=== PATIENT | female | born 1970 | race Caucasian/White ===

== ENCOUNTER 2017-12-09 14:16 | Emergency (ER) | payer MEDICARE | END 2017-12-09 18:37 | disposition home or self-care (01) | LOC: D.ER 14:16 | DX: J06.9 Acute upper respiratory infection, unspecified (principal); J02.9 Acute pharyngitis, unspecified; F17.200 Nicotine dependence, unspecified, uncomplicated ==

== ENCOUNTER 2017-12-29 23:00 | Emergency (ER) | payer MEDICARE ==
[2017-12-29 23:33] LABS: APPEARANCE HAZY (CLEAR); COLOR YELLOW (YELLOW)
[2017-12-29 23:34] LABS: BILIRUBIN NEGATIVE (NEGATIVE); GLUCOSE NEGATIVE (NEGATIVE); KETONE NEGATIVE (NEGATIVE); NITRITE NEGATIVE (NEGATIVE); PROTEIN NEGATIVE (NEGATIVE); UROBILINOGEN NORMAL (NORMAL)
[2017-12-29 23:35] LABS: BACTERIA FEW /hpf (NONE SEEN); EPITHELIAL CELLS 0-5 /hpf (0-5); RED CELLS - URINE 0-5 /hpf (0-5); UDS - AMPHET NEGATIVE QUAL (NEGATIVE); UDS - BARB NEGATIVE QUAL (NEGATIVE); UDS - BENZO POSITIVE QUAL (NEGATIVE); UDS - COCAINE NEGATIVE QUAL (NEGATIVE); UDS - OPIATE NEGATIVE QUAL (NEGATIVE); UDS - PCP NEGATIVE QUAL (NEGATIVE); UDS - THC POSITIVE QUAL (NEGATIVE); WHITE CELLS - URINE 0-5 /hpf (0-5)
[2017-12-29 23:47] LABS: HEMATOCRIT 40.4 % (36.0-48.0); HEMOGLOBIN 14.1 g/dL (12-16); LYMPHOCYTES 33.3 % (15-50); MCH 31.8 pg (26.0-34.0); MCHC 34.9 g/dL (31.0-37.0); MCV 91.2 fL (80.0-100.0); MEAN PLATELET VOLUME 8.4 fL (7.4-10.4); NEUTROPHILS 62.9 % (40-80); PLATELET COUNT 310 10x3/uL (130-400); RBC 4.43 10x6/uL (4.00-5.40); RDW 14.4 % (11.5-14.5)
[2017-12-30 00:02] LABS: ALBUMIN 2.8 g/dL (3.4-5.0); BILIRUBIN - TOTAL 0.2 mg/dL (0.2-1.3); CALCIUM 8.7 mg/dL (8.5-10.1); CARBON DIOXIDE 24.4 mmol/L (21.0-32.0); POTASSIUM - SERUM 3.4 mmol/L (3.5-5.1); PROTEIN - SERUM 7.7 g/dL (6.4-8.2)
[2017-12-30 00:23] LABS: HCG URINE NEGATIVE (NEGATIVE)
== END 2017-12-30 00:50 | disposition short-term general hospital (02) ==
LOC: D.ER 23:00
PROVIDERS: Emergency Medicine; Physician Assistant Medical
DX: R45.851 Suicidal ideations (principal); F31.60 Bipolar disorder, current episode mixed, unspecified; F17.200 Nicotine dependence, unspecified, uncomplicated

== ENCOUNTER 2018-06-16 16:14 | Emergency (ER) | payer MEDICARE ==
[~2018-06-16] VITALS: Ht 157.5 cm; Wt 108.2 kg
[2018-06-16 16:16] VITALS: Ht 157.5 cm; Wt 108.2 kg
[2018-06-16] MEDS ORDERED: NEURONTIN 300300 MG PO (16:18)
[2018-06-16] MEDS ORDERED: PEPCID AC20 MG PO (16:18)
[2018-06-16] MEDS ORDERED: ZOFRAN8 MG PO (16:19)
[2018-06-16] MEDS ORDERED: DOK100 MG PO (16:19)
[2018-06-16] MEDS ORDERED: SEROQUEL200 MG PO (16:19)
[2018-06-16] MEDS ORDERED: PROTONIX40 MG PO (16:20)
[2018-06-16] MEDS ORDERED: CHLORPROMAZINE200 MG PO (16:20)
[2018-06-16] MEDS ORDERED: MINIPRESS1 MG PO (16:21)
[2018-06-16] MEDS ORDERED: REQUIP0.25 MG PO (16:21)
[2018-06-16 16:48] LABS: BASOPHILS 0.2 % (0-2); EOSINOPHILS 1.3 % (0-7); HEMATOCRIT 45.1 % (36.0-48.0); HEMOGLOBIN 15.5 g/dL (12-16); IMMATURE GRANULOCYTES 0.3 % (0-5); LYMPHOCYTES 25.4 % (15-50); MCH 32.5 pg (26.0-34.0); MCHC 34.4 g/dL (31.0-37.0); MCV 94.5 fL (80.0-100.0); MEAN PLATELET VOLUME 9.9 fL (7.4-10.4); MONOCYTES 6.2 % (2-11); NEUTROPHILS 66.6 % (40-80); RBC 4.77 10x6/uL (4.00-5.40); WBC 13.3 10x3/uL (4.8-10.8)
[2018-06-16 17:00] LABS: APPEARANCE CLEAR (CLEAR); BILIRUBIN NEGATIVE (NEGATIVE); COLOR YELLOW (YELLOW); GLUCOSE NEGATIVE (NEGATIVE); KETONE NEGATIVE (NEGATIVE); NITRITE NEGATIVE (NEGATIVE); PROTEIN NEGATIVE (NEGATIVE); UROBILINOGEN NORMAL (NORMAL)
[2018-06-16 17:02] LABS: UDS - AMPHET NEGATIVE QUAL (NEGATIVE); UDS - BARB NEGATIVE QUAL (NEGATIVE); UDS - BENZO POSITIVE QUAL (NEGATIVE); UDS - COCAINE NEGATIVE QUAL (NEGATIVE); UDS - OPIATE NEGATIVE QUAL (NEGATIVE); UDS - PCP NEGATIVE QUAL (NEGATIVE); UDS - THC POSITIVE QUAL (NEGATIVE)
[2018-06-16 17:03] LABS: ALBUMIN 3.2 g/dL (3.4-5.0); ANION GAP 14.6 mmol/L (8-16); BILIRUBIN - TOTAL 0.34 mg/dL (0.2-1.3); CALCIUM 9.1 mg/dL (8.5-10.1); CARBON DIOXIDE 24.1 mmol/L (21.0-32.0); CREATININE - SERUM 0.9 mg/dL (0.6-1.3); MAGNESIUM - SERUM 1.8 mg/dL (1.8-2.4); POTASSIUM - SERUM 3.7 mmol/L (3.5-5.1); PROTEIN - SERUM 7.8 g/dL (6.4-8.2)
[2018-06-16 17:10] LABS: PLATELET COUNT 217 10x3/uL (130-400)
[2018-06-16 21:31] LABS: HCG URINE NEGATIVE (NEGATIVE)
[2018-06-16 23:08] VITALS: BP 173/90
== END 2018-06-16 23:09 ==
LOC: D.ER 16:14
PROVIDERS: Emergency Medicine
DX: R45.851 Suicidal ideations (principal); F41.9 Anxiety disorder, unspecified; F32.9 Major depressive disorder, single episode, unspecified; Z91.14 Patient's other noncompliance with medication regimen; F17.200 Nicotine dependence, unspecified, uncomplicated

== ENCOUNTER 2018-07-08 17:26 | Emergency (ER) | payer MEDICARE ==
[~2018-07-08] VITALS: Ht 157.5 cm; Wt 101.4 kg
[~2018-07-08 17:26] MED LIST: CHLORPROMAZINE200 MG PO; DOK100 MG PO; MINIPRESS1 MG PO; NEURONTIN 300300 MG PO; PEPCID AC20 MG PO; PROTONIX40 MG PO; REQUIP0.25 MG PO; SEROQUEL200 MG PO; ZOFRAN8 MG PO
[2018-07-08 17:32] VITALS: Ht 157.5 cm; Wt 101.4 kg
[2018-07-08 18:04] LABS: BASOPHILS 0.4 % (0-2); EOSINOPHILS 1.2 % (0-7); HEMATOCRIT 46.3 % (36.0-48.0); HEMOGLOBIN 16.4 g/dL (12-16); IMMATURE GRANULOCYTES 0.4 % (0-5); LYMPHOCYTES 30.8 % (15-50); MCH 32.7 pg (26.0-34.0); MCHC 35.4 g/dL (31.0-37.0); MCV 92.2 fL (80.0-100.0); MEAN PLATELET VOLUME 9.9 fL (7.4-10.4); MONOCYTES 6.8 % (2-11); NEUTROPHILS 60.4 % (40-80); RBC 5.02 10x6/uL (4.00-5.40); RDW 14.8 % (11.5-14.5); WBC 12.9 10x3/uL (4.8-10.8)
[2018-07-08 18:05] LABS: APPEARANCE SL CLDY (CLEAR); BILIRUBIN NEGATIVE (NEGATIVE); COLOR YELLOW (YELLOW); GLUCOSE NEGATIVE (NEGATIVE); HCG URINE NEGATIVE (NEGATIVE); KETONE NEGATIVE (NEGATIVE); NITRITE NEGATIVE (NEGATIVE); PROTEIN NEGATIVE (NEGATIVE); SPECIFIC GRAVITY 1.005 (1.005-1.020); UROBILINOGEN NORMAL (NORMAL)
[2018-07-08 18:06] LABS: PLATELET COUNT 266 10x3/uL (130-400)
[2018-07-08 18:10] LABS: UDS - AMPHET NEGATIVE QUAL (NEGATIVE); UDS - BARB NEGATIVE QUAL (NEGATIVE); UDS - BENZO NEGATIVE QUAL (NEGATIVE); UDS - COCAINE NEGATIVE QUAL (NEGATIVE); UDS - OPIATE NEGATIVE QUAL (NEGATIVE); UDS - PCP NEGATIVE QUAL (NEGATIVE); UDS - THC POSITIVE QUAL (NEGATIVE)
[2018-07-08 18:19] LABS: ALBUMIN 3.5 g/dL (3.4-5.0); ALKALINE PHOSPHATASE 112 U/L (46-116); ALT (SGPT) 91 U/L (10-68); BILIRUBIN - TOTAL 0.32 mg/dL (0.2-1.3); CALC OSMOLALITY 271 mosm/kg (275-300); CALCIUM 9.2 mg/dL (8.5-10.1); CARBON DIOXIDE 23.3 mmol/L (21.0-32.0); CHLORIDE - SERUM 101 mmol/L (98-107); CREATININE - SERUM 0.8 mg/dL (0.6-1.3); GLUCOSE 116 mg/dL (74-106); MAGNESIUM - SERUM 1.7 mg/dL (1.8-2.4); POTASSIUM - SERUM 3.4 mmol/L (3.5-5.1); PROTEIN - SERUM 8.3 g/dL (6.4-8.2); SODIUM 137 mmol/L (136-145); UREA NITROGEN 4 mg/dL (7-18); eGFR NON AFRICAN AMERICAN 81 mL/min (90-120)
[2018-07-08 23:00] VITALS: BP 130/76
== END 2018-07-08 23:10 ==
LOC: D.ER 17:26
PROVIDERS: Family Medicine
DX: R45.851 Suicidal ideations (principal); F41.9 Anxiety disorder, unspecified; F32.9 Major depressive disorder, single episode, unspecified; F17.200 Nicotine dependence, unspecified, uncomplicated

== ENCOUNTER 2018-09-12 20:37 | Emergency (ER) | payer MEDICARE ==
[~2018-09-12] VITALS: Ht 157.5 cm; Wt 97.3 kg
[2018-09-12 20:40] VITALS: Ht 157.5 cm; Wt 97.3 kg
[2018-09-12] MEDS ORDERED: IMIPRAMINE10 MG PO (20:45)
[2018-09-12] MEDS ORDERED: BENZTROPINE MESY1 MG PO (20:46)
[2018-09-12] MEDS ORDERED: KLONOPIN1 MG PO (20:47)
[2018-09-12 21:15] LABS: BASOPHILS 0.5 % (0-2); EOSINOPHILS 1.4 % (0-7); HEMATOCRIT 50.5 % (36.0-48.0); HEMOGLOBIN 17.4 g/dL (12-16); IMMATURE GRANULOCYTES 0.5 % (0-5); LYMPHOCYTES 34.4 % (15-50); MCH 31.1 pg (26.0-34.0); MCHC 34.5 g/dL (31.0-37.0); MCV 90.3 fL (80.0-100.0); MEAN PLATELET VOLUME 9.7 fL (7.4-10.4); MONOCYTES 6.4 % (2-11); NEUTROPHILS 56.8 % (40-80); RBC 5.59 10x6/uL (4.00-5.40); RDW 15.2 % (11.5-14.5); WBC 15.9 10x3/uL (4.8-10.8)
[2018-09-12 21:20] LABS: PLATELET COUNT 332 10x3/uL (130-400)
[2018-09-12 21:20] LABS: COLOR YELLOW (YELLOW)
[2018-09-12 21:21] LABS: APPEARANCE CLEAR (CLEAR); BILIRUBIN 1+ (NEGATIVE); GLUCOSE NEGATIVE (NEGATIVE); KETONE NEGATIVE (NEGATIVE); NITRITE NEGATIVE (NEGATIVE); PROTEIN 1+ mg/dL (NEGATIVE)
[2018-09-12 21:22] LABS: RED CELLS - URINE 0-5 /hpf (0-5); WHITE CELLS - URINE 0-5 /hpf (0-5)
[2018-09-12 21:23] LABS: BACTERIA MODERATE /hpf (NONE SEEN); MUCUS <1+ /lpf (NONE SEEN)
[2018-09-12 21:29] LABS: UDS - AMPHET NEGATIVE QUAL (NEGATIVE); UDS - BARB NEGATIVE QUAL (NEGATIVE); UDS - BENZO NEGATIVE QUAL (NEGATIVE); UDS - COCAINE NEGATIVE QUAL (NEGATIVE); UDS - OPIATE NEGATIVE QUAL (NEGATIVE); UDS - PCP NEGATIVE QUAL (NEGATIVE); UDS - THC POSITIVE QUAL (NEGATIVE)
[2018-09-12 21:30] LABS: ALBUMIN 3.6 g/dL (3.4-5.0); BILIRUBIN - TOTAL 0.55 mg/dL (0.2-1.3); CALCIUM 9.1 mg/dL (8.5-10.1); CARBON DIOXIDE 21.8 mmol/L (21.0-32.0); POTASSIUM - SERUM 3.8 mmol/L (3.5-5.1)
[2018-09-12 21:31] LABS: HCG URINE NEGATIVE (NEGATIVE)
[2018-09-12 21:39] LABS: THYROID STIMULATING HORMONE 1.77 uIU/mL (0.36-3.74)
[2018-09-13 01:23] VITALS: BP 145/89
== END 2018-09-13 02:36 ==
LOC: D.ER 20:37
PROVIDERS: Emergency Medicine
DX: R45.851 Suicidal ideations (principal); F32.9 Major depressive disorder, single episode, unspecified; N39.0 Urinary tract infection, site not specified

== ENCOUNTER 2018-10-13 16:11 | Emergency (ER) | payer MEDICARE, MEDICAID ==
[~2018-10-13] VITALS: Ht 157.5 cm; Wt 95.9 kg
[~2018-10-13 16:11] MED LIST changes: +BENZTROPINE MESY1 MG PO; +IMIPRAMINE10 MG PO; +KLONOPIN1 MG PO
[2018-10-13 16:24] VITALS: Ht 157.5 cm; Wt 95.9 kg
[2018-10-13] MEDS ORDERED: CYMBALTA60 MG PO (16:34)
[2018-10-13 17:35] LABS: BASOPHILS 0.3 % (0-2); EOSINOPHILS 0.6 % (0-7); HEMATOCRIT 46.9 % (36.0-48.0); HEMOGLOBIN 16.7 g/dL (12-16); IMMATURE GRANULOCYTES 0.2 % (0-5); LYMPHOCYTES 29.1 % (15-50); MCH 32.4 pg (26.0-34.0); MCHC 35.6 g/dL (31.0-37.0); MCV 90.9 fL (80.0-100.0); MEAN PLATELET VOLUME 10.2 fL (7.4-10.4); MONOCYTES 5.6 % (2-11); NEUTROPHILS 64.2 % (40-80); RBC 5.16 10x6/uL (4.00-5.40); RDW 16.2 % (11.5-14.5); WBC 11.3 10x3/uL (4.8-10.8)
[2018-10-13 17:40] LABS: PLATELET COUNT 196 10x3/uL (130-400)
[2018-10-13 17:51] LABS: APPEARANCE CLEAR (CLEAR); BILIRUBIN NEGATIVE (NEGATIVE); COLOR YELLOW (YELLOW); GLUCOSE NEGATIVE (NEGATIVE); KETONE NEGATIVE (NEGATIVE); NITRITE NEGATIVE (NEGATIVE); PROTEIN TRACE mg/dL (NEGATIVE); SPECIFIC GRAVITY 1.015 (1.005-1.020); UROBILINOGEN NORMAL (NORMAL)
[2018-10-13 17:52] LABS: ALBUMIN 3.7 g/dL (3.4-5.0); ANION GAP 21.2 mmol/L (8-16); BILIRUBIN - TOTAL 0.67 mg/dL (0.2-1.3); CALCIUM 9.1 mg/dL (8.5-10.1); CARBON DIOXIDE 17.8 mmol/L (21.0-32.0); CREATININE - SERUM 0.9 mg/dL (0.6-1.3); MAGNESIUM - SERUM 1.8 mg/dL (1.8-2.4); PROTEIN - SERUM 8.3 g/dL (6.4-8.2)
[2018-10-13 17:53] LABS: BACTERIA MODERATE /hpf (NONE SEEN); MUCUS <1+ /lpf (NONE SEEN); RED CELLS - URINE 0-5 /hpf (0-5); WHITE CELLS - URINE 0-5 /hpf (0-5)
[2018-10-13 19:22] LABS: UDS - AMPHET NEGATIVE QUAL (NEGATIVE); UDS - BARB NEGATIVE QUAL (NEGATIVE); UDS - BENZO POSITIVE QUAL (NEGATIVE); UDS - COCAINE NEGATIVE QUAL (NEGATIVE); UDS - OPIATE NEGATIVE QUAL (NEGATIVE); UDS - PCP NEGATIVE QUAL (NEGATIVE); UDS - THC POSITIVE QUAL (NEGATIVE)
[2018-10-13 21:46] VITALS: BP 118/77
== END 2018-10-13 21:48 ==
LOC: D.ER 16:11
PROVIDERS: Emergency Medicine
DX: F32.9 Major depressive disorder, single episode, unspecified (principal); E87.6 Hypokalemia; F20.9 Schizophrenia, unspecified; R45.851 Suicidal ideations; I10 Essential (primary) hypertension; J44.9 Chronic obstructive pulmonary disease, unspecified; R05 Cough

== ENCOUNTER 2018-10-31 19:49 | Emergency (ER) | payer MEDICARE, MEDICAID ==
[~2018-10-31] VITALS: Ht 157.5 cm; Wt 81.8 kg
[~2018-10-31 19:49] MED LIST changes: +CYMBALTA60 MG PO
[2018-10-31 20:06] VITALS: Ht 157.5 cm; Wt 81.8 kg
[2018-10-31] MEDS ORDERED: THORAZINE (20:19)
[2018-10-31 20:48] LABS: UDS - AMPHET NEGATIVE QUAL (NEGATIVE); UDS - BARB NEGATIVE QUAL (NEGATIVE); UDS - BENZO POSITIVE QUAL (NEGATIVE); UDS - COCAINE NEGATIVE QUAL (NEGATIVE); UDS - OPIATE NEGATIVE QUAL (NEGATIVE); UDS - PCP NEGATIVE QUAL (NEGATIVE); UDS - THC POSITIVE QUAL (NEGATIVE)
[2018-10-31 21:15] LABS: BASOPHILS 0.3 % (0-2); EOSINOPHILS 1.8 % (0-7); HEMATOCRIT 43.8 % (36.0-48.0); HEMOGLOBIN 15.3 g/dL (12-16); IMMATURE GRANULOCYTES 0.2 % (0-5); LYMPHOCYTES 28.9 % (15-50); MCH 32.2 pg (26.0-34.0); MCHC 34.9 g/dL (31.0-37.0); MCV 92.2 fL (80.0-100.0); MEAN PLATELET VOLUME 9.9 fL (7.4-10.4); NEUTROPHILS 61.8 % (40-80); PLATELET COUNT 208 10x3/uL (130-400); RBC 4.75 10x6/uL (4.00-5.40); RDW 15.4 % (11.5-14.5); WBC 10.8 10x3/uL (4.8-10.8)
[2018-10-31 21:37] LABS: ALBUMIN 3.4 g/dL (3.4-5.0); ALKALINE PHOSPHATASE 110 U/L (46-116); ALT (SGPT) 63 U/L (10-68); BILIRUBIN - TOTAL 0.54 mg/dL (0.2-1.3); CALC OSMOLALITY 274 mosm/kg (275-300); CALCIUM 8.5 mg/dL (8.5-10.1); CARBON DIOXIDE 23.2 mmol/L (21.0-32.0); CHLORIDE - SERUM 103 mmol/L (98-107); CREATININE - SERUM 0.8 mg/dL (0.6-1.3); GLUCOSE 81 mg/dL (74-106); POTASSIUM - SERUM 3.5 mmol/L (3.5-5.1); PROTEIN - SERUM 7.7 g/dL (6.4-8.2); SODIUM 139 mmol/L (136-145); UREA NITROGEN 8 mg/dL (7-18); eGFR NON AFRICAN AMERICAN 81 mL/min (90-120)
[2018-10-31 21:47] LABS: AMORPHOUS SEDIMENT <1+ /lpf (NONE SEEN); APPEARANCE HAZY (CLEAR); BACTERIA MANY /hpf (NONE SEEN); BILIRUBIN NEGATIVE (NEGATIVE); COLOR YELLOW (YELLOW); EPITHELIAL CELLS 0-5 /hpf (0-5); GLUCOSE NEGATIVE (NEGATIVE); KETONE MODERATE mg/dL (NEGATIVE); MUCUS >1+ /lpf (NONE SEEN); NITRITE NEGATIVE (NEGATIVE); PROTEIN TRACE mg/dL (NEGATIVE); SPECIFIC GRAVITY 1.025 (1.005-1.020); WHITE CELLS - URINE RARE /hpf (0-5)
[2018-10-31 21:54] LABS: HCG URINE NEGATIVE (NEGATIVE)
[2018-11-01 00:43] VITALS: BP 150/80
== END 2018-11-01 00:58 ==
LOC: D.ER 19:49
PROVIDERS: Emergency Medicine
DX: F32.9 Major depressive disorder, single episode, unspecified (principal); R45.851 Suicidal ideations; F23 Brief psychotic disorder; R45.850 Homicidal ideations

== ENCOUNTER 2018-11-14 22:46 | Emergency (ER) | payer MEDICARE, MEDICAID ==
[~2018-11-14] VITALS: Ht 157.5 cm; Wt 95.7 kg
[~2018-11-14 22:46] MED LIST changes: +THORAZINE
[2018-11-14 22:55] VITALS: Ht 157.5 cm; Wt 95.7 kg
[2018-11-14] MEDS ORDERED: AMOXICILLIN875 MG PO (23:32)
[2018-11-14] MEDS ORDERED: EC-NAPROSYN500 MG PO (23:32)
[2018-11-15 00:05] VITALS: BP 132/59
== END 2018-11-15 00:07 | disposition home or self-care (01) ==
LOC: D.ER 22:46
DX: R45.851 Suicidal ideations (principal)

== ENCOUNTER 2018-11-15 00:18 | Emergency (ER) | payer MEDICARE, MEDICAID ==
[~2018-11-15] VITALS: Ht 157.5 cm; Wt 90.3 kg
[~2018-11-15 00:18] MED LIST changes: +AMOXICILLIN875 MG PO; +EC-NAPROSYN500 MG PO
[2018-11-15 00:23] VITALS: Ht 157.5 cm; Wt 90.3 kg
[2018-11-15 00:46] LABS: APPEARANCE CLEAR (CLEAR); BILIRUBIN NEGATIVE (NEGATIVE); COLOR YELLOW (YELLOW); GLUCOSE NEGATIVE (NEGATIVE); KETONE NEGATIVE (NEGATIVE); NITRITE NEGATIVE (NEGATIVE); PROTEIN NEGATIVE (NEGATIVE); UROBILINOGEN NORMAL (NORMAL)
[2018-11-15 00:56] LABS: UDS - AMPHET NEGATIVE QUAL (NEGATIVE); UDS - BARB NEGATIVE QUAL (NEGATIVE); UDS - BENZO POSITIVE QUAL (NEGATIVE); UDS - COCAINE NEGATIVE QUAL (NEGATIVE); UDS - OPIATE NEGATIVE QUAL (NEGATIVE); UDS - PCP NEGATIVE QUAL (NEGATIVE); UDS - THC POSITIVE QUAL (NEGATIVE)
[2018-11-15 01:02] LABS: BASOPHILS 0.2 % (0-2); HEMATOCRIT 44.1 % (36.0-48.0); HEMOGLOBIN 15.2 g/dL (12-16); IMMATURE GRANULOCYTES 0.3 % (0-5); LYMPHOCYTES 28.6 % (15-50); MCH 32.1 pg (26.0-34.0); MCHC 34.5 g/dL (31.0-37.0); MEAN PLATELET VOLUME 9.6 fL (7.4-10.4); MONOCYTES 7.5 % (2-11); NEUTROPHILS 61.4 % (40-80); PLATELET COUNT 218 10x3/uL (130-400); RBC 4.74 10x6/uL (4.00-5.40); RDW 15.5 % (11.5-14.5); WBC 12.5 10x3/uL (4.8-10.8)
[2018-11-15 01:22] LABS: ALBUMIN 3.3 g/dL (3.4-5.0); ALKALINE PHOSPHATASE 87 U/L (46-116); ALT (SGPT) 53 U/L (10-68); BILIRUBIN - TOTAL 0.35 mg/dL (0.2-1.3); CALC OSMOLALITY 268 mosm/kg (275-300); CALCIUM 8.5 mg/dL (8.5-10.1); CREATININE - SERUM 0.8 mg/dL (0.6-1.3); GLUCOSE 95 mg/dL (74-106); PROTEIN - SERUM 7.6 g/dL (6.4-8.2); UREA NITROGEN 11 mg/dL (7-18); eGFR NON AFRICAN AMERICAN 81 mL/min (90-120)
[2018-11-15 01:24] LABS: MAGNESIUM - SERUM 1.8 mg/dL (1.8-2.4)
[2018-11-15 01:34] LABS: CHLORIDE - SERUM 103 mmol/L (98-107); POTASSIUM - SERUM 3.8 mmol/L (3.5-5.1); SODIUM 137 mmol/L (136-145)
[2018-11-15 04:58] VITALS: BP 122/89
== END 2018-11-15 06:53 ==
LOC: D.ER 00:18
PROVIDERS: Emergency Medicine
DX: R45.851 Suicidal ideations (principal)

== ENCOUNTER 2018-12-07 20:47 | Emergency (ER) | payer MEDICARE, MEDICAID ==
[~2018-12-07] VITALS: Ht 157.5 cm; Wt 91.8 kg
[2018-12-07 20:55] VITALS: Ht 157.5 cm; Wt 91.8 kg
[2018-12-07] MEDS ORDERED: BENZTROPINE MESY1 MG PO (20:57)
[2018-12-07] MEDS ORDERED: MINIPRESS 5 MG C5 MG PO (20:57)
[2018-12-07] MEDS ORDERED: TOPAMAX50 MG PO (20:57)
[2018-12-07] MEDS ORDERED: CHLORPROMAZINE200 MG PO (20:57)
[2018-12-07 21:22] LABS: APPEARANCE CLEAR (CLEAR); COLOR YELLOW (YELLOW)
[2018-12-07 21:23] LABS: BILIRUBIN NEGATIVE (NEGATIVE); GLUCOSE NEGATIVE (NEGATIVE); HCG URINE NEGATIVE (NEGATIVE); KETONE NEGATIVE (NEGATIVE); NITRITE NEGATIVE (NEGATIVE); PROTEIN NEGATIVE (NEGATIVE); SPECIFIC GRAVITY 1.015 (1.005-1.020); UROBILINOGEN NORMAL (NORMAL)
[2018-12-07 21:32] LABS: UDS - AMPHET NEGATIVE QUAL (NEGATIVE); UDS - BARB NEGATIVE QUAL (NEGATIVE); UDS - BENZO NEGATIVE QUAL (NEGATIVE); UDS - COCAINE NEGATIVE QUAL (NEGATIVE); UDS - OPIATE NEGATIVE QUAL (NEGATIVE); UDS - PCP NEGATIVE QUAL (NEGATIVE); UDS - THC POSITIVE QUAL (NEGATIVE)
[2018-12-07 22:06] LABS: BASOPHILS 0.2 % (0-2); EOSINOPHILS 1.4 % (0-7); HEMATOCRIT 44.2 % (36.0-48.0); HEMOGLOBIN 15.4 g/dL (12-16); IMMATURE GRANULOCYTES 0.5 % (0-5); LYMPHOCYTES 29.1 % (15-50); MCH 32.8 pg (26.0-34.0); MCHC 34.8 g/dL (31.0-37.0); MCV 94.2 fL (80.0-100.0); MEAN PLATELET VOLUME 9.4 fL (7.4-10.4); MONOCYTES 5.7 % (2-11); NEUTROPHILS 63.1 % (40-80); PLATELET COUNT 257 10x3/uL (130-400); RBC 4.69 10x6/uL (4.00-5.40); RDW 15.7 % (11.5-14.5); WBC 13.8 10x3/uL (4.8-10.8)
[2018-12-07 22:28] LABS: ALBUMIN 3.3 g/dL (3.4-5.0); ANION GAP 12.3 mmol/L (8-16); BILIRUBIN - TOTAL 0.22 mg/dL (0.2-1.3); CARBON DIOXIDE 25.6 mmol/L (21.0-32.0); CREATININE - SERUM 0.9 mg/dL (0.6-1.3); POTASSIUM - SERUM 3.9 mmol/L (3.5-5.1); PROTEIN - SERUM 7.8 g/dL (6.4-8.2)
[2018-12-07 22:34] LABS: MAGNESIUM - SERUM 1.6 mg/dL (1.8-2.4)
[2018-12-08 00:48] VITALS: BP 108/65
== END 2018-12-08 00:48 ==
LOC: D.ER 20:47
PROVIDERS: Family Medicine
DX: R45.851 Suicidal ideations (principal); F32.9 Major depressive disorder, single episode, unspecified; F20.9 Schizophrenia, unspecified

== ENCOUNTER 2019-01-23 23:44 | Emergency (ER) | payer MEDICARE, MEDICAID ==
[~2019-01-23] VITALS: Ht 157.5 cm; Wt 115.9 kg
[~2019-01-23 23:44] MED LIST changes: +MINIPRESS 5 MG C5 MG PO; +TOPAMAX50 MG PO
[2019-01-23 23:56] VITALS: Ht 157.5 cm; Wt 115.9 kg
--- NOTE | 2019-01-24 00:07 | NUR ---
DR FRIAS NOTIFIED AND 1:1 SITTER OBSERVATION ORDERED, SITTER AT BEDSIDE, NOTIFIED CHARGE NURSE AND ATTENDING IN REGARDS TO ASSESSMENT FINDINGS. RESOURCES GIVEN TO PT AND SAFEY PLAN INITIATED.
[2019-01-24 00:13] LABS: BASOPHILS 0.4 % (0-2); EOSINOPHILS 2.3 % (0-7); HEMATOCRIT 43.3 % (36.0-48.0); IMMATURE GRANULOCYTES 0.2 % (0-5); LYMPHOCYTES 40.7 % (15-50); MCH 32.6 pg (26.0-34.0); MCHC 34.6 g/dL (31.0-37.0); MCV 94.1 fL (80.0-100.0); MEAN PLATELET VOLUME 9.8 fL (7.4-10.4); MONOCYTES 5.6 % (2-11); NEUTROPHILS 50.8 % (40-80); PLATELET COUNT 242 10x3/uL (130-400); RDW 13.6 % (11.5-14.5); WBC 11.1 10x3/uL (4.8-10.8)
[2019-01-24 00:14] LABS: UDS - AMPHET NEGATIVE QUAL (NEGATIVE); UDS - BARB NEGATIVE QUAL (NEGATIVE); UDS - BENZO NEGATIVE QUAL (NEGATIVE); UDS - COCAINE NEGATIVE QUAL (NEGATIVE); UDS - OPIATE NEGATIVE QUAL (NEGATIVE); UDS - PCP NEGATIVE QUAL (NEGATIVE); UDS - THC POSITIVE QUAL (NEGATIVE)
[2019-01-24 00:17] LABS: APPEARANCE HAZY (CLEAR); COLOR YELLOW (YELLOW)
[2019-01-24 00:18] LABS: BACTERIA MANY /hpf (NONE SEEN); BILIRUBIN NEGATIVE (NEGATIVE); GLUCOSE NEGATIVE (NEGATIVE); KETONE NEGATIVE (NEGATIVE); NITRITE POSITIVE (NEGATIVE); PROTEIN NEGATIVE (NEGATIVE); RED CELLS - URINE 0-5 /hpf (0-5); UROBILINOGEN NORMAL (NORMAL); WHITE CELLS - URINE >50 /hpf (0-5)
[2019-01-24] MEDS ORDERED: MACROBID100 MG PO (00:31)
[2019-01-24 00:37] LABS: ALBUMIN 3.4 g/dL (3.4-5.0); ALKALINE PHOSPHATASE 78 U/L (46-116); ALT (SGPT) 29 U/L (10-68); BILIRUBIN - TOTAL 0.26 mg/dL (0.2-1.3); CALC OSMOLALITY 275 mosm/kg (275-300); CALCIUM 8.6 mg/dL (8.5-10.1); CARBON DIOXIDE 24.9 mmol/L (21.0-32.0); CHLORIDE - SERUM 103 mmol/L (98-107); CREATININE - SERUM 0.8 mg/dL (0.6-1.3); GLUCOSE 114 mg/dL (74-106); POTASSIUM - SERUM 3.3 mmol/L (3.5-5.1); PROTEIN - SERUM 7.6 g/dL (6.4-8.2); SODIUM 138 mmol/L (136-145); UREA NITROGEN 10 mg/dL (7-18); eGFR NON AFRICAN AMERICAN 81 mL/min (90-120)
[2019-01-24 03:46] VITALS: BP 130/82
== END 2019-01-24 06:45 ==
LOC: D.ER 23:44
PROVIDERS: Family Medicine
DX: R45.851 Suicidal ideations (principal); N39.0 Urinary tract infection, site not specified

== ENCOUNTER 2019-02-23 19:33 | Emergency (ER) | payer MEDICARE, MEDICAID ==
[~2019-02-23] VITALS: Ht 157.5 cm; Wt 97.7 kg
[~2019-02-23 19:33] MED LIST changes: +MACROBID100 MG PO
[2019-02-23 19:42] VITALS: Ht 157.5 cm; Wt 97.7 kg
[2019-02-23 20:05] LABS: APPEARANCE CLEAR (CLEAR); BILIRUBIN NEGATIVE (NEGATIVE); COLOR YELLOW (YELLOW); GLUCOSE NEGATIVE (NEGATIVE); KETONE NEGATIVE (NEGATIVE); NITRITE POSITIVE (NEGATIVE); PROTEIN NEGATIVE (NEGATIVE); UROBILINOGEN NORMAL (NORMAL)
[2019-02-23 20:08] LABS: BACTERIA MANY /hpf (NONE SEEN); EPITHELIAL CELLS 0-5 /hpf (0-5); RED CELLS - URINE 0-5 /hpf (0-5)
[2019-02-23 20:14] LABS: UDS - AMPHET NEGATIVE QUAL (NEGATIVE); UDS - BARB NEGATIVE QUAL (NEGATIVE); UDS - BENZO NEGATIVE QUAL (NEGATIVE); UDS - COCAINE NEGATIVE QUAL (NEGATIVE); UDS - OPIATE NEGATIVE QUAL (NEGATIVE); UDS - PCP NEGATIVE QUAL (NEGATIVE); UDS - THC POSITIVE QUAL (NEGATIVE)
[2019-02-23 21:03] LABS: BASOPHILS 0.3 % (0-2); EOSINOPHILS 2.1 % (0-7); HEMATOCRIT 44.1 % (36.0-48.0); HEMOGLOBIN 15.5 g/dL (12-16); IMMATURE GRANULOCYTES 0.5 % (0-5); LYMPHOCYTES 27.4 % (15-50); MCH 33.4 pg (26.0-34.0); MCHC 35.1 g/dL (31.0-37.0); MONOCYTES 4.2 % (2-11); NEUTROPHILS 65.5 % (40-80); RBC 4.64 10x6/uL (4.00-5.40); RDW 14.4 % (11.5-14.5); WBC 14.9 10x3/uL (4.8-10.8)
[2019-02-23 21:07] LABS: PLATELET COUNT 310 10x3/uL (130-400)
[2019-02-23 21:18] LABS: ALBUMIN 3.4 g/dL (3.4-5.0); ANION GAP 15.3 mmol/L (8-16); BILIRUBIN - TOTAL 0.24 mg/dL (0.2-1.3); CALCIUM 9.2 mg/dL (8.5-10.1); CARBON DIOXIDE 26.5 mmol/L (21.0-32.0); CREATININE - SERUM 1.1 mg/dL (0.6-1.3); MAGNESIUM - SERUM 1.8 mg/dL (1.8-2.4); POTASSIUM - SERUM 3.8 mmol/L (3.5-5.1); PROTEIN - SERUM 8.1 g/dL (6.4-8.2)
[2019-02-23] MEDS ORDERED: SULFAMETHOXAZOL1 TA3 PO (22:46)
--- NOTE | 2019-02-23 23:32 | NUR ---
PATIENT WAS SEEN IN ER -ROOM 19 AND WAS HAVING SUICIDAL IDEATIONS. A SAFETY PLAN WAS DISCUSSED WITH HER AND THIS NURSE AND PATIENT SIGNED IT, PATIENT WAS GIVEN A COPY, SUICIDE PREVENTION RESOURCES WAS GIVEN TO HER. PATIENT OBSERVATION SHEET WAS STARTED, THE ROOM WAS FREE OF CONTRABAND, SITTER WAS PROVIDED. PATIENT REPORTED THAT SHE FELT SAFER KNOWING THAT SOMEONE WOULD BE WITH HER AT ALL TIMES.
[2019-02-24 00:46] VITALS: BP 121/67
== END 2019-02-24 00:49 ==
LOC: D.ER 19:33
PROVIDERS: Family Medicine
DX: R45.851 Suicidal ideations (principal); N39.0 Urinary tract infection, site not specified

== ENCOUNTER 2019-07-25 18:10 | Emergency (ER) | payer MEDICARE, MEDICAID ==
[~2019-07-25] VITALS: Ht 157.5 cm; Wt 89.1 kg
[~2019-07-25 18:10] MED LIST changes: +SULFAMETHOXAZOL1 TA3 PO
[2019-07-25 18:16] VITALS: Ht 157.5 cm; Wt 89.1 kg
[2019-07-25 18:48] LABS: BASOPHILS 0.2 % (0-2); HEMOGLOBIN 14.2 g/dL (12-16); IMMATURE GRANULOCYTES 0.6 % (0-5); LYMPHOCYTES 21.8 % (15-50); MCH 31.3 pg (26.0-34.0); MCV 94.7 fL (80.0-100.0); MONOCYTES 6.5 % (2-11); NEUTROPHILS 69.9 % (40-80); PLATELET COUNT 280 10x3/uL (130-400); RBC 4.54 10x6/uL (4.00-5.40); RDW 17.3 % (11.5-14.5); WBC 19.5 10x3/uL (4.8-10.8)
[2019-07-25 19:04] LABS: APPEARANCE CLEAR (CLEAR); BILIRUBIN NEGATIVE (NEGATIVE); COLOR YELLOW (YELLOW); GLUCOSE NEGATIVE (NEGATIVE); KETONE NEGATIVE (NEGATIVE); NITRITE POSITIVE (NEGATIVE); PROTEIN NEGATIVE (NEGATIVE); UROBILINOGEN NORMAL (NORMAL)
[2019-07-25 19:05] LABS: EPITHELIAL CELLS 0-5 /hpf (0-5); RED CELLS - URINE OCC /hpf (0-5)
[2019-07-25 19:06] LABS: BACTERIA MODERATE /hpf (NEGATIVE); MUCUS <1+ /lpf (NONE SEEN)
[2019-07-25 19:11] LABS: CALC OSMOLALITY 275 mosm/kg (275-300); CALCIUM 9.5 mg/dL (8.5-10.1); CARBON DIOXIDE 22.2 mmol/L (21.0-32.0); CHLORIDE - SERUM 106 mmol/L (98-107); CREATININE - SERUM 0.8 mg/dL (0.6-1.3); GLUCOSE 97 mg/dL (74-106); POTASSIUM - SERUM 3.6 mmol/L (3.5-5.1); SODIUM 139 mmol/L (136-145); UREA NITROGEN 6 mg/dL (7-18); eGFR NON AFRICAN AMERICAN 81 mL/min (90-120)
[2019-07-25 19:11] LABS: UDS - AMPHET NEGATIVE QUAL (NEGATIVE); UDS - BARB NEGATIVE QUAL (NEGATIVE); UDS - BENZO NEGATIVE QUAL (NEGATIVE); UDS - COCAINE NEGATIVE QUAL (NEGATIVE); UDS - OPIATE NEGATIVE QUAL (NEGATIVE); UDS - PCP NEGATIVE QUAL (NEGATIVE); UDS - THC POSITIVE QUAL (NEGATIVE)
[2019-07-25 19:14] LABS: ALBUMIN 3.5 g/dL (3.4-5.0); ALKALINE PHOSPHATASE 89 U/L (46-116); ALT (SGPT) 22 U/L (10-68); BILIRUBIN - TOTAL 0.21 mg/dL (0.2-1.3); PROTEIN - SERUM 8.2 g/dL (6.4-8.2)
--- NOTE | 2019-07-25 20:22 | NUR ---
DR. FRIAS NOTIFIED AND SITTER ORDERED. SITTER AT BEDSIDE NOTIFIED CHARGE NURSE AND ATTENDING IN REGARDS TO ASSESSMENT FINDINGS. RESOURCES GIVEN TO PT AND SAFETY PLAN INITIATED.
[2019-07-25 23:37] VITALS: BP 164/95
== END 2019-07-25 23:56 ==
LOC: D.ER 18:10
PROVIDERS: Family Medicine
DX: R45.851 Suicidal ideations (principal); R44.0 Auditory hallucinations; R82.90 Unspecified abnormal findings in urine; N39.0 Urinary tract infection, site not specified

== ENCOUNTER 2019-08-04 03:48 | Inpatient (IN) | payer MEDICARE, MEDICAID ==
[~2019-08-04] VITALS: Ht 157.5 cm; Wt 95.0 kg
--- NOTE | 2019-08-04 04:18 | NUR ---
TRANSFERRED TO 19 IN A SECURED ROOM, WITH 1 ON 1 SUPERVISION, SHELTER NURSE NOTIFIED ALL BELONGS COLLECTED AND PLACED AT NX STATION, CHANGED INTO BLUE SCRUBS
--- NOTE | 2019-08-04 04:32 | NUR ---
DR. FRIAS NOTIFIED AND SITTER ORDERED. SITTER AT BEDSIDE. NOTIFIED CHARGE NURSE AND ATTENDING IN REGARDS TO ASSESSMENT FINDINGS. RESOURCES GIVEN TO PT AND SAFETY PLAN INITIATED.
[2019-08-04 04:38] LABS: UDS - AMPHET NEGATIVE QUAL (NEGATIVE); UDS - BARB NEGATIVE QUAL (NEGATIVE); UDS - BENZO POSITIVE QUAL (NEGATIVE); UDS - COCAINE NEGATIVE QUAL (NEGATIVE); UDS - OPIATE NEGATIVE QUAL (NEGATIVE); UDS - PCP NEGATIVE QUAL (NEGATIVE); UDS - THC POSITIVE QUAL (NEGATIVE)
[2019-08-04 04:42] LABS: APPEARANCE HAZY (CLEAR); BILIRUBIN NEGATIVE (NEGATIVE); COLOR YELLOW (YELLOW); GLUCOSE NEGATIVE (NEGATIVE); KETONE NEGATIVE (NEGATIVE); NITRITE NEGATIVE (NEGATIVE); PROTEIN 2+ mg/dL (NEGATIVE); UROBILINOGEN NORMAL (NORMAL)
[2019-08-04 04:43] LABS: EPITHELIAL CELLS 0-5 /hpf (0-5); RED CELLS - URINE 0-5 /hpf (0-5); WHITE CELLS - URINE 0-5 /hpf (NEGATIVE)
[2019-08-04 04:44] LABS: AMORPHOUS SEDIMENT <1+ /lpf (NONE SEEN); BACTERIA FEW /hpf (NEGATIVE); GRANULAR CAST 0-5 /lpf (NONE SEEN); HCG URINE NEGATIVE (NEGATIVE)
[2019-08-04 04:51] LABS: BASOPHILS 0.2 % (0-2); EOSINOPHILS 0.1 % (0-7); HEMATOCRIT 45.6 % (36.0-48.0); HEMOGLOBIN 15.3 g/dL (12-16); IMMATURE GRANULOCYTES 0.3 % (0-5); LYMPHOCYTES 13.5 % (15-50); MCH 31.4 pg (26.0-34.0); MCHC 33.6 g/dL (31.0-37.0); MCV 93.6 fL (80.0-100.0); MEAN PLATELET VOLUME 9.5 fL (7.4-10.4); MONOCYTES 4.9 % (2-11); RBC 4.87 10x6/uL (4.00-5.40); RDW 16.1 % (11.5-14.5); WBC 18.3 10x3/uL (4.8-10.8)
[2019-08-04 04:55] LABS: PLATELET COUNT 213 10x3/uL (130-400)
[2019-08-04 05:31] LABS: CALC OSMOLALITY 282 mosm/kg (275-300); CARBON DIOXIDE 24.2 mmol/L (21.0-32.0); CHLORIDE - SERUM 105 mmol/L (98-107); CREATININE - SERUM 0.8 mg/dL (0.6-1.3); GLUCOSE 120 mg/dL (74-106); POTASSIUM - SERUM 3.8 mmol/L (3.5-5.1); SODIUM 141 mmol/L (136-145); UREA NITROGEN 16 mg/dL (7-18); eGFR NON AFRICAN AMERICAN 81 mL/min (90-120)
[2019-08-04 05:47] LABS: ALBUMIN 3.1 g/dL (3.4-5.0); ALKALINE PHOSPHATASE 95 U/L (46-116); ALT (SGPT) 109 U/L (10-68); BILIRUBIN - TOTAL 0.26 mg/dL (0.2-1.3); C-REACTIVE PROTEIN 12.7 mg/dL (0.0-0.9); PROTEIN - SERUM 6.8 g/dL (6.4-8.2)
[2019-08-04 06:48] LABS: CREATINE KINASE 37832 UL (21-215)
[2019-08-04 06:50] LABS: CKMB 373.8 U/L (0.0-3.6)
[2019-08-04 07:16] VITALS: BP 123/69
--- NOTE | 2019-08-04 07:18 | NUR ---
REPORT RECEIVED. PATIENT RESTING QUIETLY AWAITING CT SCAN. NO COMPLAINTS AT PRESENT SITTER AT BEDSIDE
--- NOTE | 2019-08-04 07:40 | NUR ---
PATIENT TO CT WITH SITTER APPROXIMTELY [id number]
--- NOTE | 2019-08-04 09:14 | NUR ---
COMPLAINING OF BILATERAL LEG PAIN, NOTIFIED. ORDERS RECIEVED AND TORADOL ADMINISTERED FOR PAIN. ANDERSON CALLED REPORT.
[2019-08-04 12:30] VITALS: BP 141/71
--- NOTE | 2019-08-04 12:44 | MORECARE ---
CASE MANAGEMENT DISCHARGE SUMMARY PATIENT: RACHEL FLORES UNIT: [id number] ADM DATE: 08/04/19 AGE: 48 : [birth year] SEX: F ROOM/BED: D.2101 AUTHOR: NTAALIIA HENDRIX PHYSICIAN: REFERRING PHYSICIAN: DAYNA WILSON MD DATE OF SERVICE: 08/04/19 Discharge Plan Patient Name: RACHEL FLORES [facility] [facility] 1970 Planned Disposition: Inpatient Psych Facility Anticipated Discharge Date: 08/08/19 Discharge Date: Expected LOS: 4 Initial Reviewer: [email or web address] Initial Review Date: 08/04/2019 Generated: 08/04/19 1:44 pm Patient Name: RACHEL FLORES Page 90847 at 1244 All edits/amendments must be made on the electronic document DICTATION DATE: 08/04/19 1243 BUSINESS LOAN PROCESSOR: FAHAD 08/04/19 1243 RPT#: [id number] DC DATE: STATUS: ADM IN [facility] [address] [place] [address] END OF REPORT
--- NOTE | 2019-08-04 12:51 | MORECARE ---
CASE MANAGEMENT DISCHARGE SUMMARY PATIENT: RACHEL POOLE UNIT: [id number] ADM DATE: 08/04/19 AGE: 48 : 68 SEX: F ROOM/BED: D.2101 AUTHOR: SIMEONDOC PHYSICIAN: REFERRING PHYSICIAN: DAYNA WILSON MD DATE OF SERVICE: 08/04/19 Discharge Plan Patient Name: RACHEL POOLE Facility: [facility]:[place] : 1970 Planned Disposition: Inpatient Psych Facility Anticipated Discharge Date: 08/08/19 Discharge Date: Expected LOS: 4 Initial Reviewer: [email or web address] Initial Review Date: 08/04/2019 Generated: 08/04/19 1:51 pm DCP- Discharge Planning Updated by [email or web address]: Alyssa Daigle on 08/04/19 11:[address] DC PLAN: Inpatient psych facility. ANTICIPATED DC NEEDS: Psych Placement. CM met with patient to complete initial dc planning assessment. CM educated patient on the CM role and verbal consent given by patient to complete assessment. CM verified patient's address, phone number, and emergency contact phone numbers. Patient lives at home alone and reports she is independent with her ADL's. Patient is suicidal with intentions to harm herself. She stated she has a history of being in psych facilities for suicidal intentions. She reports she was discharged from [facility] 2 weeks ago. At discharge patient knows she will need psych placement once medically stable. CM will continue to follow and will assist as needed with dc plans/needs. Alyssa Daigle RN, [facility] DCPIA - Discharge Planning Initial Assessment Updated by [email or web address]: Alyssa Daigle on 08/04/19 12:45 pm * Is the patient Alert and Oriented? Yes * How many steps to enter\exit or inside your home? * PCP Maryjo Umanzors - [facility] * Pharmacy [place] * Preadmission Environment Home Alone * ADLs Independent * Equipment None * List name and contact numbers for known caregivers / representatives who currently or will assist patient after discharge: Monse Poole - mother in law - [phone] * Verbal permission to speak to the caregivers and representatives has been obtained from the patient. Yes * Community resources currently utilized None * Additional services required to return to the preadmission environment? Yes * Can the patient safely return to the preadmission environment? No * Has this patient been hospitalized within the prior 30 days at any hospital? No Last DP export: 08/04/19 11:44 Patient Name: RACHEL POOLE Page 94375 at 1251 All edits/amendments must be made on the electronic document DICTATION DATE: 08/04/19 1251 INGOT CASTER: FAHAD 08/04/19 1251 RPT#: [id number] DC DATE: STATUS: ADM IN [facility] [address] [place] [address] END OF REPORT
--- NOTE | 2019-08-04 13:36 | NUR ---
PT NOT WANTING NICOTINE PATCH, ASKING FOR GUM INSTEAD. WILL CHECK WITH PHYSICIAN ABOUT SWITCHING.
[2019-08-04 15:31] VITALS: BP 108/54
[2019-08-04 17:52] VITALS: BP 141/71; Ht 157.5 cm; Wt 95.0 kg
[2019-08-04 18:39] LABS: INR 1.13 (0.85-1.17)
[2019-08-04 18:40] LABS: APTT 32.6 SECONDS (22.8-39.4)
--- NOTE | 2019-08-04 19:04 | NUR ---
PT IMELDA AND GUMARO IS WITH PT PT ASKED FOR NEEDS AND I SAW TO THEM PT ALSO CO PAIN I WILL CONSULT WITH MD SOON BED LOW AND LOCKED AND SAFTY CHECK IS DONE CALL LIGHT IS WITH PT
[2019-08-04 20:00] VITALS: BP 123/66
[2019-08-04 23:00] VITALS: BP 142/68
--- NOTE | 2019-08-05 02:35 | NUR ---
I have reviewed this patient and I concur with the Shift Assessment completed by the Licensed Practical Nurse today this shift.
[2019-08-05 04:00] VITALS: BP 113/64
[2019-08-05 05:05] LABS: BASOPHILS 0.3 % (0-2); EOSINOPHILS 1.1 % (0-7); HEMATOCRIT 36.6 % (36.0-48.0); HEMOGLOBIN 12.3 g/dL (12-16); IMMATURE GRANULOCYTES 0.3 % (0-5); LYMPHOCYTES 42.8 % (15-50); MCH 31.1 pg (26.0-34.0); MCHC 33.6 g/dL (31.0-37.0); MCV 92.7 fL (80.0-100.0); MEAN PLATELET VOLUME 9.3 fL (7.4-10.4); MONOCYTES 6.9 % (2-11); NEUTROPHILS 48.6 % (40-80); PLATELET COUNT 231 10x3/uL (130-400); RBC 3.95 10x6/uL (4.00-5.40); RDW 15.6 % (11.5-14.5)
[2019-08-05 05:15] LABS: WBC 11.5 10x3/uL (4.8-10.8)
[2019-08-05 05:22] LABS: ALBUMIN 2.5 g/dL (3.4-5.0); ALKALINE PHOSPHATASE 74 U/L (46-116); BILIRUBIN - TOTAL 0.34 mg/dL (0.2-1.3); CALCIUM 8.2 mg/dL (8.5-10.1); CARBON DIOXIDE 22.8 mmol/L (21.0-32.0); CHLORIDE - SERUM 112 mmol/L (98-107); CREATININE - SERUM 0.7 mg/dL (0.6-1.3); GLUCOSE 83 mg/dL (74-106); POTASSIUM - SERUM 3.4 mmol/L (3.5-5.1); PROTEIN - SERUM 6.1 g/dL (6.4-8.2); SODIUM 145 mmol/L (136-145); eGFR NON AFRICAN AMERICAN > 90 mL/min (90-120)
[2019-08-05 05:24] LABS: ALT (SGPT) 76 U/L (10-68); CALC OSMOLALITY 285 mosm/kg (275-300); UREA NITROGEN 7 mg/dL (7-18)
[2019-08-05 09:10] LABS: HEPATITIS C ANTIBODY <0.1 S/CO RAT (0.0-0.9)
[2019-08-05 09:29] LABS: APPEARANCE CLEAR (CLEAR); BILIRUBIN NEGATIVE (NEGATIVE); COLOR YELLOW (YELLOW); GLUCOSE NEGATIVE (NEGATIVE); KETONE NEGATIVE (NEGATIVE); NITRITE NEGATIVE (NEGATIVE); PROTEIN NEGATIVE (NEGATIVE); SPECIFIC GRAVITY 1.015 (1.005-1.020); UROBILINOGEN NORMAL (NORMAL)
[2019-08-05 09:30] VITALS: BP 174/96
--- NOTE | 2019-08-05 11:56 | MORECARE ---
CASE MANAGEMENT DISCHARGE SUMMARY PATIENT: RACHEL POOLE UNIT: [id number] ADM DATE: 08/04/19 AGE: 48 : 68 SEX: F ROOM/BED: D.2101 AUTHOR: SIMEONDOC PHYSICIAN: REFERRING PHYSICIAN: DAYNA WILSON MD DATE OF SERVICE: 08/05/19 Discharge Plan Patient Name: RACHEL POOLE Facility: [facility]:[place] : 1970 Planned Disposition: Inpatient Psych Facility Anticipated Discharge Date: 08/08/19 Discharge Date: Expected LOS: 4 Initial Reviewer: [email or web address] Initial Review Date: 08/04/2019 Generated: 08/05/19 12:55 pm DCP- Discharge Planning Updated by [email or web address]: Alyssa Daigle on 08/04/19 11:[address] DC PLAN: Inpatient psych facility. ANTICIPATED DC NEEDS: Psych Placement. CM met with patient to complete initial dc planning assessment. CM educated patient on the CM role and verbal consent given by patient to complete assessment. CM verified patient's address, phone number, and emergency contact phone numbers. Patient lives at home alone and reports she is independent with her ADL's. Patient is suicidal with intentions to harm herself. She stated she has a history of being in psych facilities for suicidal intentions. She reports she was discharged from [facility] 2 weeks ago. At discharge patient knows she will need psych placement once medically stable. CM will continue to follow and will assist as needed with dc plans/needs. Alyssa Daigle RN, [facility] DCPIA - Discharge Planning Initial Assessment Updated by [email or web address]: Alyssa Daigle on 08/04/19 12:45 pm * Is the patient Alert and Oriented? Yes * How many steps to enter\exit or inside your home? * PCP Maryjo Umanzors - [facility] * Pharmacy [place] * Preadmission Environment Home Alone * ADLs Independent * Equipment None * List name and contact numbers for known caregivers / representatives who currently or will assist patient after discharge: Monse Poole - mother in law - [phone] * Verbal permission to speak to the caregivers and representatives has been obtained from the patient. Yes * Community resources currently utilized None * Additional services required to return to the preadmission environment? Yes * Can the patient safely return to the preadmission environment? No * Has this patient been hospitalized within the prior 30 days at any hospital? No Last DP export: 08/04/19 11:51 Patient Name: RACHEL POOLE Page 19276 at 1156 All edits/amendments must be made on the electronic document DICTATION DATE: 08/05/19 115 BONING ROOM WORKER: FAHAD 08/05/19 115 RPT#: [id number] DC DATE: STATUS: ADM IN [facility] [address] [place] [address] END OF REPORT
--- NOTE | 2019-08-05 13:49 | CN ---
PATIENT NAME:RACHEL FLORES MEDICAL RECORD: [id number] : 68 LOCATION:[facility].2101 ADMIT DATE: 08/04/19 ACCOUNT: [id number] CONSULTING PHYSICIAN: FLAVIA FRIAS MD REFERRING PHYSICIAN: DAYNA WILSON MD DATE OF CONSULTATION: 08/04/2019 PSYCHIATRIC EVALUATION IDENTIFYING DATA: The patient is a 48-year-old and she is admitted to the hospital on a voluntary basis. CHIEF COMPLAINT: Depression. HISTORY OF PRESENT ILLNESS: The patient initially presented to the Emergency Room complaining of foot pain. She was being evaluated and I presumed that there was talk about her being discharged and she said that she would kill herself if she went home. She does have a long psychiatric history and that includes a history of multiple suicide attempts. She is currently 1:1 with a sitter and she tells me that she is having active thoughts of killing herself. She says that she would cut her wrists if forced to do so. She shows me her right wrist which does have a scar longitudinally that I am presuming is a previous attempt. She endorses a lot of depressive symptoms. She denies psychotic symptoms. She says she does not abuse drugs or alcohol, but she is positive for marijuana. She also is positive for benzodiazepine, but she does receive a scheduled dose of Klonopin for reasons that are not entirely clear to me. She is taking 2 antipsychotics, which concern me. ASSESSMENT: Major depression, recurrent versus bipolar disorder. PLAN: At this time, I believe the patient has a recurrent depressive illness along with a probable personality disorder. I am going to treat her with antidepressant medication and would recommend that she be transferred to inpatient psychiatric care as soon as it is reasonably practical to do so. She says that her preference is for the [facility] that she has been there before and thinks that they do a very good job and that is where she wants to go. She was just released from the [facility] a few days ago for having suicidal thoughts. TRANSINT:[id number] Voice Confirmation ID: [id number] DOCUMENT ID: [id number] FLAVIA FRIAS MD at 1349 CC: [id number] DICTATION DATE: 08/04/19 1605 SURGICAL GARMENT FITTER: 08/05/19 0011 ADM IN [facility] [address] [facility] [place] [address]
[2019-08-05 20:00] VITALS: BP 148/72
[2019-08-06] VITALS (7 sets, daily range): BP systolic 137–190; BP diastolic 68–94
[2019-08-06 04:16] LABS: BASOPHILS 0.5 % (0-2); EOSINOPHILS 1.8 % (0-7); HEMATOCRIT 35.7 % (36.0-48.0); HEMOGLOBIN 11.7 g/dL (12-16); IMMATURE GRANULOCYTES 0.2 % (0-5); LYMPHOCYTES 46.4 % (15-50); MCH 30.7 pg (26.0-34.0); MCHC 32.8 g/dL (31.0-37.0); MCV 93.7 fL (80.0-100.0); MEAN PLATELET VOLUME 8.9 fL (7.4-10.4); MONOCYTES 6.3 % (2-11); NEUTROPHILS 44.8 % (40-80); PLATELET COUNT 235 10x3/uL (130-400); RBC 3.81 10x6/uL (4.00-5.40); RDW 15.5 % (11.5-14.5); WBC 10.4 10x3/uL (4.8-10.8)
[2019-08-06 04:41] LABS: ALBUMIN 2.3 g/dL (3.4-5.0); ALKALINE PHOSPHATASE 67 U/L (46-116); ALT (SGPT) 59 U/L (10-68); BILIRUBIN - TOTAL 0.17 mg/dL (0.2-1.3); CALC OSMOLALITY 285 mosm/kg (275-300); CALCIUM 7.9 mg/dL (8.5-10.1); CARBON DIOXIDE 24.1 mmol/L (21.0-32.0); CHLORIDE - SERUM 112 mmol/L (98-107); CREATININE - SERUM 0.8 mg/dL (0.6-1.3); GLUCOSE 109 mg/dL (74-106); MAGNESIUM - SERUM 1.5 mg/dL (1.8-2.4); POTASSIUM - SERUM 3.9 mmol/L (3.5-5.1); PROTEIN - SERUM 5.5 g/dL (6.4-8.2); SODIUM 144 mmol/L (136-145); UREA NITROGEN 8 mg/dL (7-18); eGFR NON AFRICAN AMERICAN 81 mL/min (90-120)
[2019-08-06 04:42] LABS: CREATINE KINASE 8690 UL (21-215)
--- NOTE | 2019-08-06 07:30 | NUR ---
A/A/OX4. DENIES ANY PAIN AT THIS TIME AND NO REQUESTS VOICED. IV PATENT TO LEFT AC WITHOUT REDNESS OR EDEMA AND INFUSING WELL. ASSESSMENT COMPLETED AND WILL CONTINUE POC.
--- NOTE | 2019-08-06 18:27 | NUR ---
REVIEWED ASSESSMENT BY FERMENTATION ENGINEER AND I CONCUR.
--- NOTE | 2019-08-06 19:32 | NUR ---
RECIEVED LAYING IN BED WITH EYES OPEN. SITTER AT BEDSIDE. ALERT AND ORIETNED. ANSWERS SOME QUESTIONS AND IGNORS OTHERS. LUNG SOUNDS CLEAR BILATERALLY. ABSX4. IV TO LEFT AC WITH NS AT 150CC/HR. AMBULATED TO B/R WITH OUT DIFFICULTY. DENIES ANY NEEDS.
[2019-08-07 04:00] VITALS: BP 140/66
[2019-08-07 05:33] LABS: BASOPHILS 0.3 % (0-2); EOSINOPHILS 2.3 % (0-7); HEMATOCRIT 39.8 % (36.0-48.0); HEMOGLOBIN 13.1 g/dL (12-16); IMMATURE GRANULOCYTES 0.3 % (0-5); LYMPHOCYTES 35.5 % (15-50); MCH 30.8 pg (26.0-34.0); MCHC 32.9 g/dL (31.0-37.0); MCV 93.6 fL (80.0-100.0); MEAN PLATELET VOLUME 9.2 fL (7.4-10.4); MONOCYTES 4.9 % (2-11); NEUTROPHILS 56.7 % (40-80); PLATELET COUNT 266 10x3/uL (130-400); RBC 4.25 10x6/uL (4.00-5.40); RDW 15.4 % (11.5-14.5); WBC 14.9 10x3/uL (4.8-10.8)
[2019-08-07 05:49] LABS: ALBUMIN 2.3 g/dL (3.4-5.0); ALKALINE PHOSPHATASE 66 U/L (46-116); ALT (SGPT) 52 U/L (10-68); BILIRUBIN - TOTAL 0.14 mg/dL (0.2-1.3); CALC OSMOLALITY 279 mosm/kg (275-300); CALCIUM 8.2 mg/dL (8.5-10.1); CARBON DIOXIDE 23.3 mmol/L (21.0-32.0); CHLORIDE - SERUM 109 mmol/L (98-107); CREATININE - SERUM 0.7 mg/dL (0.6-1.3); GLUCOSE 100 mg/dL (74-106); MAGNESIUM - SERUM 1.5 mg/dL (1.8-2.4); POTASSIUM - SERUM 3.6 mmol/L (3.5-5.1); PROTEIN - SERUM 5.7 g/dL (6.4-8.2); SODIUM 141 mmol/L (136-145); UREA NITROGEN 9 mg/dL (7-18); eGFR NON AFRICAN AMERICAN > 90 mL/min (90-120)
--- NOTE | 2019-08-07 07:00 | NUR ---
RECEIVED REPORT. ASSUMED CARE OF PATIENT. PATIENT RESTING IN BED WITH EYES CLOSED. PATIENT PROVIDED WITH ONE ON ONE SITTER AT THIS TIME. NO DISTRESS. CALL LIGHT SAY RIDER.
--- NOTE | 2019-08-07 07:00 | NUR ---
RECEIVED REPORT. ASSUMED CARE OF PATIENT. PATIENT LYING IN BED WITH ATTENTION TOWARD TELEVISION. CALL LIGHT WITHIN REACH. NO DISTRESS. DENIES NEEDS.
[2019-08-07 09:00] VITALS: BP 171/83
[2019-08-07 10:03] LABS: CREATINE KINASE 4777 UL (21-215)
[2019-08-07 10:04] LABS: CKMB 4.2 U/L (0.0-3.6)
[2019-08-07 13:04] VITALS: BP 145/72
--- NOTE | 2019-08-07 13:59 | NUR ---
RELEIVED SITTER, PATIENT RESTING WITH EYES CLOSED, RESP EVEN AND UNLABORED. NO DISTRESS. CALL LIGHT WITHIN REACH.
[2019-08-07 15:08] LABS: MITOCHONDRIAL ANTIBODY 23.5 Units (0.0-20.0)
--- NOTE | 2019-08-07 16:01 | MORECARE ---
CASE MANAGEMENT DISCHARGE SUMMARY PATIENT: RACHEL POOLE UNIT: [id number] ADM DATE: 08/04/19 AGE: 48 : 68 SEX: F ROOM/BED: D.2101 AUTHOR: NATALIIA HENDRIX PHYSICIAN: REFERRING PHYSICIAN: DAYNA WILSON MD DATE OF SERVICE: 08/07/19 Discharge Plan Patient Name: RACHEL POOLE Facility: [facility]:[place] : 1970 Planned Disposition: Inpatient Psych Facility Anticipated Discharge Date: 08/08/19 Discharge Date: Expected LOS: 4 Initial Reviewer: [email or web address] Initial Review Date: 08/04/2019 Generated: 08/07/19 5:00 pm Comments DCP- Discharge Planning Updated by [email or web address]: Carey Bear on 08/07/19 2:[address] Patient Name: RACHEL POOLE Admission Status: ER Accout number: [id number] Admission Date: 08-04-2019 : 1970 Admission Diagnosis: Attending: DAYNA SOLORZANO Current LOS: 3 Anticipated DC Date: 08-08-2019 Planned Disposition: Inpatient Psych Facility Primary Insurance: [facility] MEDICARE SOLUTIONS Discharge Planning Comments: CM SPOKE WITH TATIANA AT [facility], I FAXED HER INFORMATION ON PATIENT FOR PSYCH REFERRAL. FAX # [phone] AND PHONE NUMBER [phone]. WAITING CALL BACK. REFERRAL FAXED AT [phone]. [employer]: Carey Bear DCP- Discharge Planning Updated by [email or web address]: Jesus Alberto Patel on 08/05/19 10:[address] Patient Name: RACHEL POOLE Encounter No: [id number] : 1970 Primary Insurance: [facility] MEDICARE SOLUTIONS Anticipated DC Date: 08-08-2019 Planned Disposition: Inpatient Psych Facility External Planned Provider: TO BE DETERMINED DCP follow-up note: LATE ENRY FROM 08-04-19; CM MET WITH PT IN ROOM WHO REPORTS CONTINUED SUICIDAL IDEATIONS WITH PLAN TO CUT HER WRIST, PT DOES NOT HAVE A KNIFE WITH HER. PT WANTS INPATIENT PSYCHIATRIC PLACEMENT AT [facility] SHE ATTENDS DAY TREATMENT [address] YADAV, [facility] PROVIDES VAN TRANSPORT. PT REPORTS SHE GOT OUT OF [facility] THE DAY BEFORE COMING TO THIS HOSPITAL FOR FOOT PAIN. CM EXPLAINED THAT PT WILL BE SENT TO FIRST ACCEPTING FACILITY [facility] FOR PHSYCHIATRIC CARE IF RECOMMENDED BY PHYSICIANS HERE. PT REPORTS UNDERSTANDING AND IS IN AGREEMENT WITH PLACEMENT IN PSYCHIATRIC FACILITY. PT IS WILLING FOR INPAITENT PSYCHIATRIC TREATMENT WHEN MEDICALLY STABLE. CM TO CONTINUE TO FOLLOW AND ASSIST NEEDED. Jesus Alberto Patel, CASE MANAGEMENT DCP- Discharge Planning Updated by [email or web address]: Alyssa Daigle on 08/04/19 11:[address] DC PLAN: Inpatient psych facility. ANTICIPATED DC NEEDS: Psych Placement. CM met with patient to complete initial dc planning assessment. CM educated patient on the CM role and verbal consent given by patient to complete assessment. CM verified patient's address, phone number, and emergency contact phone numbers. Patient lives at home alone and reports she is independent with her ADL's. Patient is suicidal with intentions to harm herself. She stated she has a history of being in psych facilities for suicidal intentions. She reports she was discharged from [facility] 2 weeks ago. At discharge patient knows she will need psych placement once medically stable. CM will continue to follow and will assist as needed with dc plans/needs. Alyssa Daigle RN, [facility] DCPIA - Discharge Planning Initial Assessment Updated by [email or web address]: Alyssa Daigle on 08/04/19 12:45 pm * Is the patient Alert and Oriented? Yes * How many steps to enter\exit or inside your home? * [facility] Pharm[facility] * Preadmission Environment Home Alone * ADLs Independent * Equipment None * List name and contact numbers for known caregivers / representatives who currently or will assist patient after discharge: Monse Poole - mother in law - [phone] * Verbal permission to speak to the caregivers and representatives has been obtained from the patient. Yes * Community resources currently utilized None * Additional services required to return to the preadmission environment? Yes * Can the patient safely return to the preadmission environment? No * Has this patient been hospitalized within the prior 30 days at any hospital? No Last DP export: 08/05/19 10:56 Patient Name: RACHEL POOLE Page [id number] Electronically Signed by NATALIIA [facility] on 08/07/19 at 1601 All edits/amendments must be made on the electronic document DICTATION DATE: 08/07/191599 PIN CHASER: DM 08/07/191599 RPT#: [id number] DC DATE: STATUS: ADM IN [facility] [address] [place] [address] END OF REPORT
--- NOTE | 2019-08-07 16:41 | MORECARE ---
CASE MANAGEMENT DISCHARGE SUMMARY PATIENT: RACHEL POOLE UNIT: [id number] ADM DATE: 08/04/19 AGE: 48 : [birth year] SEX: F ROOM/BED: D.2101 AUTHOR: NATALIIA HENDRIX PHYSICIAN: REFERRING PHYSICIAN: DAYNA WILSON MD DATE OF SERVICE: 08/07/19 Discharge Plan Patient Name: RACHEL POOLE Facility: [facility]:[place] : 1970 Planned Disposition: Inpatient Psych Facility Anticipated Discharge Date: 08/08/19 Discharge Date: Expected LOS: 4 Initial Reviewer: [email or web address] Initial Review Date: 08/04/2019 Generated: 08/07/19 5:41 pm Comments DCP- Discharge Planning Updated by [email or web address]: Carey Bear on 08/07/19 3:[address] Patient Name: RACHEL POOLE Admission Status: ER Accout number: [id number] Admission Date: 08-04-2019 : 1970 Admission Diagnosis: Attending: DAYNA SOLORZANO Current LOS: 3 Anticipated DC Date: 08-08-2019 Planned Disposition: Inpatient Psych Facility Primary Insurance: [facility] MEDICARE SOLUTIONS Discharge Planning Comments: CM SPOKE WITH TATIANA AT [facility], I FAXED HER INFORMATION ON PATIENT FOR PSYCH REFERRAL. FAX # [phone] AND PHONE NUMBER [phone]. WAITING CALL BACK. REFERRAL FAXED AT [phone]. [employer] Ground Operations Supervisor: Carey Bear Appended by Carey Bear on 08/07/2019 16:35 SENIOR INSTRUCTIONAL DESIGNER: HOPE FROM [facility] CALLED AND STATES THEY WILL PROB ACCEPT THE PATIENT. SHE NEEDS TO TALK TO THE PATIENT'S NURSE, I TRANSFERRED THE CALL TO THE FLOOR. CM TO FOLLOW. DCP- Discharge Planning Updated by [email or web address]: Jesus Alberto Patel on 08/05/19 10:[address] Patient Name: RACHEL POOLE Encounter No: [id number] : 1970 Primary Insurance: [facility] MEDICARE SOLUTIONS Anticipated DC Date: 08-08-2019 Planned Disposition: Inpatient Psych Facility External Planned Provider: TO BE DETERMINED DCP follow-up note: LATE ENRY FROM 08-04-19; CM MET WITH PT IN ROOM WHO REPORTS CONTINUED SUICIDAL IDEATIONS WITH PLAN TO CUT HER WRIST, PT DOES NOT HAVE A KNIFE WITH HER. PT WANTS INPATIENT PSYCHIATRIC PLACEMENT AT [facility] SHE ATTENDS DAY TREATMENT 5 DAYS WEEK[address] THERE WITH [address]. YADAV, [facility] PROVIDES VAN TRANSPORT. PT REPORTS SHE GOT OUT OF [facility] THE DAY BEFORE COMING TO THIS HOSPITAL FOR FOOT PAIN. CM EXPLAINED THAT PT WILL BE SENT TO FIRST ACCEPTING FACILITY [facility] FOR PHSYCHIATRIC CARE IF RECOMMENDED BY PHYSICIANS HERE. PT REPORTS UNDERSTANDING AND IS IN AGREEMENT WITH PLACEMENT IN PSYCHIATRIC FACILITY. PT IS WILLING FOR INPAITENT PSYCHIATRIC TREATMENT WHEN MEDICALLY STABLE. CM TO CONTINUE TO FOLLOW AND ASSIST NEEDED. Jesus Alberto Patel, CASE MANAGEMENT DCP- Discharge Planning Updated by [email or web address]: Alyssa Daigle on 08/04/19 11:[address] DC PLAN: Inpatient psych facility. ANTICIPATED DC NEEDS: Psych Placement. CM met with patient to complete initial dc planning assessment. CM educated patient on the CM role and verbal consent given by patient to complete assessment. CM verified patient's address, phone number, and emergency contact phone numbers. Patient lives at home alone and reports she is independent with her ADL's. Patient is suicidal with intentions to harm herself. She stated she has a history of being in psych facilities for suicidal intentions. She reports she was discharged from [facility] 2 weeks ago. At discharge patient knows she will need psych placement once medically stable. CM will continue to follow and will assist as needed with dc plans/needs. Alyssa Daigle RN, [facility] DCPIA - Discharge Planning Initial Assessment Updated by [email or web address]: Alyssa Daigle on 08/04/19 12:45 pm * Is the patient Alert and Oriented? Yes * How many steps to enter\exit or inside your home? * PCP Maryjo Umanzor - [facility] * Pharmacy [facility] * Preadmission Environment Home Alone * ADLs Independent * Equipment None * List name and contact numbers for known caregivers / representatives who currently or will assist patient after discharge: Monse Poole - mother in law - [phone] * Verbal permission to speak to the caregivers and representatives has been obtained from the patient. Yes * Community resources currently utilized None * Additional services required to return to the preadmission environment? Yes * Can the patient safely return to the preadmission environment? No * Has this patient been hospitalized within the prior 30 days at any hospital? No Last DP export: 12/15/19 3:01 Patient Name: RACHEL POOLE Page [id number] at 1641 All edits/amendments must be made on the electronic document DICTATION DATE: 08/07/191640 DICTATING MACHINE TRANSCRIBER: FAHAD 08/07/191640 RPT#: [id number] DC DATE: STATUS: ADM IN [facility] [address] [place] [address] END OF REPORT
[2019-08-07] MEDS ORDERED: EFFEXOR50 MG PO (16:51)
[2019-08-07] MEDS ORDERED: NORVASC5 MG PO (16:51)
[2019-08-07] MEDS ORDERED: KLONOPIN1 MG PO (16:52)
[2019-08-07] MEDS ORDERED: GEODON20 MG PO (16:52)
--- NOTE | 2019-08-07 17:03 | NUR ---
SPOKE WITH HOPE FROM [facility], [phone], AND SHE STATES THEY HAVE ACCEPTED THE PATIENT AND TOOK A BREIF HISTORY/REPORT ON THE PATIENT. DISCHARGE ORDER FOR [facility] HAS BEEN OBTAINED AND CASE MANAGEMENT COMMUNICATING WITH WAX PATTERN REPAIRER FOR PATIENT DISCHARGE.
--- NOTE | 2019-08-07 17:30 | NUR ---
CALLED FOR AMBULANCE TRANSPORT TO [facility]. THEY ADVISE WILL BE HERE IN ABOUT 45 MINUTES.
--- NOTE | 2019-08-07 17:40 | NUR ---
20 GAUGE IV REMOVED FROM LEFT AC. CATHETER TIP INTACT. NO BLEEDING FROM SITE. 2X2 GAUZE APPLIED AND SECURED WITH BANDAID. CALLED VICENTE BACK AND ASKED FOR MARY OR EUGENE @ [phone] TO SEE IF THEY NEEDED ANY ADDITIONAL INFORMATION FROM THIS DIVISION SUPERINTENDENT AND THAT THE PATIENT IS COMING BY AMBULANCE. ANR STATED NO, JUST SEND HER TO US. REQUESTED HOPES LAST NAME BEING SAHIL. DISCHARGE PAPERS SIGNED AT THIS TIME AND AWAITING AMBULANCE TO PICK PATIENT UP. [facility] CALLED LINSEY MARCUS, SPARERIBS TRIMMER, AND REQUESTED PICKUP. ALL TRANSFER PAPERWORK COMPLETED AT THIS TIME. NO DISTRESS.
[2019-08-07 17:42] VITALS: BP 163/72
--- NOTE | 2019-08-07 18:31 | NUR ---
[facility]. PATIENT LEFT UNIT IN STABLE CONDITION WITH ALL PERSONAL BELONGINGS. NO DISTRESS UPON LEAVING UNIT.
--- NOTE | 2019-08-08 08:12 | MORECARE ---
CASE MANAGEMENT DISCHARGE SUMMARY PATIENT: RACHEL POOLE UNIT: [id number] ADM DATE: 08/04/19 AGE: 48 : 68 SEX: F ROOM/BED: D.2101 AUTHOR: SIMEON,DOC PHYSICIAN: REFERRING PHYSICIAN: DAYNA WILSON MD DATE OF SERVICE: 08/08/19 Discharge Plan Patient Name: RACHEL POOLE Facility: [facility]:[place] : 1970 Planned Disposition: Inpatient Psych Facility Anticipated Discharge Date: 08/07/19 Discharge Date: 08/07/2019 Expected LOS: 3 Initial Reviewer: [email or web address] Initial Review Date: 08/04/2019 Generated: 08/08/19 9:12 am Comments DCP- Discharge Planning Updated by [email or web address]: Carey Bear on 08/07/19 3:[address] Patient Name: RACHEL POOLE Admission Status: ER Accout number: [id number] Admission Date: 08-04-2019 : 1970 Admission Diagnosis: Attending: DAYNA SOLORZANO Current LOS: 3 Anticipated DC Date: 08-08-2019 Planned Disposition: Inpatient Psych Facility Primary Insurance: [facility] [employer] Discharge Planning Comments: CM SPOKE WITH TATIANA AT [facility], I FAXED HER INFORMATION ON PATIENT FOR PSYCH REFERRAL. FAX # [phone] AND PHONE NUMBER [phone]. WAITING CALL BACK. REFERRAL FAXED AT [phone]. Wrist Liner: Carey Bear Appended by Carey Bear on 08/07/2019 16:35 SEAMING MACHINE OPERATOR: HOPE FROM [facility] CALLED AND STATES THEY WILL PROB ACCEPT THE PATIENT. SHE NEEDS TO TALK TO THE PATIENT'S NURSE, I TRANSFERRED THE CALL TO THE FLOOR. CM TO FOLLOW. DCP- Discharge Planning Updated by [email or web address]: Jesus Alberto Patel on 08/05/19 10:[address] Patient Name: RACHEL POOLE Encounter No: [id number] : 1970 Primary Insurance: [facility] [employer] Anticipated DC Date: 08-08-2019 Planned Disposition: Inpatient Psych Facility External Planned Provider: TO BE DETERMINED DCP follow-up note: LATE ENRY FROM 08-04-19; CM MET WITH PT IN ROOM WHO REPORTS CONTINUED SUICIDAL IDEATIONS WITH PLAN TO CUT HER WRIST, PT DOES NOT HAVE A KNIFE WITH HER. PT WANTS INPATIENT PSYCHIATRIC PLACEMENT AT [facility] SHE ATTENDS DAY TREATMENT [address] DAYS [address] YADAV, [facility] PROVIDES VAN TRANSPORT. PT REPORTS SHE GOT OUT OF [facility] THE DAY BEFORE COMING TO THIS HOSPITAL FOR FOOT PAIN. CM EXPLAINED THAT PT WILL BE SENT TO FIRST ACCEPTING FAC[facility] FOR PHSYCHIATRIC CARE IF RECOMMENDED BY PHYSICIANS HERE. PT REPORTS UNDERSTANDING AND IS IN AGREEMENT WITH PLACEMENT IN PSYCHIATRIC FACILITY. PT IS WILLING FOR INPAITENT PSYCHIATRIC TREATMENT WHEN MEDICALLY STABLE. CM TO CONTINUE TO FOLLOW AND ASSIST NEEDED. Jesus Alberto Patel, CASE MANAGEMENT DCP- Discharge Planning Updated by [email or web address]: Alyssa Daigle on 08/04/19 11:[address] DC PLAN: Inpatient psych facility. ANTICIPATED DC NEEDS: Psych Placement. CM met with patient to complete initial dc planning assessment. CM educated patient on the CM role and verbal consent given by patient to complete assessment. CM verified patient's address, phone number, and emergency contact phone numbers. Patient lives at home alone and reports she is independent with her ADL's. Patient is suicidal with intentions to harm herself. She stated she has a history of being in psych facilities for suicidal intentions. She reports she was discharged from [facility] 2 weeks ago. At discharge patient knows she will need psych placement once medically stable. CM will continue to follow and will assist as needed with dc plans/needs. Alyssa Daigle RN, [facility]CP[facility] - Discharge Planning Initial Assessment Updated by [email or web address]: Alyssa Daigel on 08/04/19 12:45 pm * Is the patient Alert and Oriented? Yes * How many steps to enter\exit or inside your home? * PCP [facility] * Pharmacy [facility] * Preadmission Environment Home Alone * ADLs Independent * Equipment None * List name and contact numbers for known caregivers / representatives who currently or will assist patient after discharge: Monse Poole - mother in law - [phone] * Verbal permission to speak to the caregivers and representatives has been obtained from the patient. Yes * Community resources currently utilized None * Additional services required to return to the preadmission environment? Yes * Can the patient safely return to the preadmission environment? No * Has this patient been hospitalized within the prior 30 days at any hospital? No Last DP export: 08/07/19 3:41 Patient Name: RACHEL POOLE Page [id number] at 0812 All edits/amendments must be made on the electronic document DICTATION DATE: 08/08/19811 ONCOLOGY RADIATION PHYSICIAN: FAHAD 08/08/19811 RPT#: [id number] DC DATE:08/07/19 STATUS: DIS IN [facility] [address] [place] [address] END OF REPORT
== END 2019-08-07 18:32 | disposition short-term general hospital (02) | DRG 558 ==
LOC: D.ER 03:48 → D.M2 08:41
PROVIDERS: Family Medicine; Internal Medicine Gastroenterology; ADMIT Family Medicine; ATTEND Family Medicine
DX: M62.82 Rhabdomyolysis (principal); R45.851 Suicidal ideations; F33.9 Major depressive disorder, recurrent, unspecified; K75.9 Inflammatory liver disease, unspecified; F20.9 Schizophrenia, unspecified; F12.90 Cannabis use, unspecified, uncomplicated

== ENCOUNTER 2019-09-01 12:01 | Emergency (ER) | payer MEDICARE, MEDICAID ==
[~2019-09-01] VITALS: Ht 157.5 cm; Wt 90.9 kg
[~2019-09-01 12:01] MED LIST changes: +EFFEXOR50 MG PO; +GEODON20 MG PO; +NORVASC5 MG PO
[2019-09-01 12:26] VITALS: BP 120/81; Ht 157.5 cm; Wt 90.9 kg
[2019-09-01 13:04] LABS: BASOPHILS 0.4 % (0-2); EOSINOPHILS 1.6 % (0-7); HEMATOCRIT 43.3 % (36.0-48.0); HEMOGLOBIN 14.6 g/dL (12-16); IMMATURE GRANULOCYTES 0.2 % (0-5); LYMPHOCYTES 22.3 % (15-50); MCH 32.2 pg (26.0-34.0); MCHC 33.7 g/dL (31.0-37.0); MCV 95.6 fL (80.0-100.0); MEAN PLATELET VOLUME 9.1 fL (7.4-10.4); MONOCYTES 4.2 % (2-11); NEUTROPHILS 71.3 % (40-80); PLATELET COUNT 268 10x3/uL (130-400); RBC 4.53 10x6/uL (4.00-5.40); RDW 14.7 % (11.5-14.5); WBC 11.6 10x3/uL (4.8-10.8)
[2019-09-01 13:16] LABS: ANION GAP 16.7 mmol/L (8-16); CALCIUM 9.1 mg/dL (8.5-10.1); CARBON DIOXIDE 23.8 mmol/L (21.0-32.0); CREATININE - SERUM 1.1 mg/dL (0.6-1.3); POTASSIUM - SERUM 3.5 mmol/L (3.5-5.1)
[2019-09-01 13:21] LABS: ALBUMIN 3.5 g/dL (3.4-5.0); BILIRUBIN - TOTAL 0.22 mg/dL (0.2-1.3); MAGNESIUM - SERUM 1.6 mg/dL (1.8-2.4); PROTEIN - SERUM 7.9 g/dL (6.4-8.2)
[2019-09-01 13:23] LABS: UDS - AMPHET NEGATIVE QUAL (NEGATIVE); UDS - BARB NEGATIVE QUAL (NEGATIVE); UDS - BENZO POSITIVE QUAL (NEGATIVE); UDS - COCAINE NEGATIVE QUAL (NEGATIVE); UDS - OPIATE NEGATIVE QUAL (NEGATIVE); UDS - PCP NEGATIVE QUAL (NEGATIVE); UDS - THC POSITIVE QUAL (NEGATIVE)
[2019-09-01 13:34] LABS: APPEARANCE SL CLDY (CLEAR); BACTERIA MANY /hpf (NEGATIVE); BILIRUBIN NEGATIVE (NEGATIVE); COLOR YELLOW (YELLOW); GLUCOSE NEGATIVE (NEGATIVE); KETONE NEGATIVE (NEGATIVE); MUCUS >1+ /lpf (NONE SEEN); NITRITE NEGATIVE (NEGATIVE); PROTEIN TRACE mg/dL (NEGATIVE); RED CELLS - URINE RARE /hpf (0-5); SPECIFIC GRAVITY 1.025 (1.005-1.020); UROBILINOGEN NORMAL (NORMAL); WHITE CELLS - URINE 0-5 /hpf (NEGATIVE)
[2019-09-01] MEDS ORDERED: FLAGYL500 MG PO (14:25)
[2019-09-01] MEDS ORDERED: MACROBID100 MG PO (14:25)
--- NOTE | 2019-09-01 17:59 | NUR ---
PATIENT STATES THAT SHE INTENDED TO END HER LIFE EARLIER TODAY. STATED THAT SHE COULD NOT FIND A RAZOR, SO SHE USED A BOTTLE CAP. SHE WAS UNABLE TO CUT HERSELF WITH THE BOTTLE CAP BECAUSE IT WAS DULL. STATES THAT SHE HEARS VOICES TELLINHG HER TO END HER LIFE. DR FRIAS NOTIFIED AND SITTER ORDERED. SITTER AT BEDSIDE. NOTIFIED CHARGE NURSE AND ATTENDING IN REGARDS TO ASSESSMENT FINDINGS., RESOURCES GIVEN TO PT AND SAFETY PLAN INITIATED.
== END 2019-09-01 19:00 ==
LOC: D.ER 12:01
PROVIDERS: Family Medicine
DX: N39.0 Urinary tract infection, site not specified (principal); R45.851 Suicidal ideations; N76.0 Acute vaginitis; F20.9 Schizophrenia, unspecified